=== PATIENT | male | born 1950 | race Caucasian/White ===

== ENCOUNTER → 2022-10-03 | Outpatient (CLI) | payer MEDICARE, SELFPAY ==
[2022-10-03 10:03] LABS: Anion Gap 7 (5-15); BUN 34 mg/dL (7-18); BUN/Creat Ratio 29.6 RATIO (10-20); Chloride 107 mmol/L (98-107); Creatinine, Serum 1.15 mg/dL (0.70-1.30); EST Glomerular Filtration Rate 66 mL/min (>60); Est Glom Filt Rate - Afr Amer 80 mL/min (>60); Glucose 123 mg/dL (74-106); Potassium 4.1 mmol/L (3.5-5.1); Sodium Level 143 mmol/L (136-145)
== END | disposition home or self-care (01) ==
PROVIDERS: PCP Family Medicine
DX: I50.9 Heart failure, unspecified (principal)
CPT/HCPCS: 36415; 80048

== ENCOUNTER → 2023-04-09 | Outpatient (CLI) | payer MEDICARE, SELFPAY ==
--- NOTE | 2023-04-09 06:57 | CT_ITS ---
INDICATION: carotid artery stenosis EXAMINATION: CTA HEAD - CTA Head and Neck W/ Contrast Injection (and W/O Contrast Images if performed) TECHNIQUE: [place]/head CT angiogram protocol was performed following IV contrast. Routine carotid CT angiogram protocol was performed without and with IV contrast. NASCET criteria using the distal ICAs for comparison were used for evaluation of stenoses. 3D reconstructions were reviewed of the CT angiogram head and neck. RADIATION DOSAGE (If Supplied By Facility): CTDIvol = ( ) mGy, DLP = ( 1650.32 ) mGycm IV Contrast dosage and agent: 100 mL of Isovue-370. COMPARISON: FINDINGS: --Anterior cerebral circulation: ACAs: No significant stenosis at the visualized segments. ACOM: Present. MCAs: No significant stenosis at the visualized segments. --Posterior cerebral circulation: PCOMs: Patent right posterior communicating artery. No visible left posterior communicating artery. 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 BASILAR ARTERY: No significant stenosis. VERTEBRAL ARTERIES: Calcified plaques in the intradural segment of the left vertebral artery causing less than percent stenosis. No significant stenosis of vertebral arteries in the intradural segments. --Carotid and vertebral circulation: AORTIC ARCH AND BRANCHES: Few calcified plaques in aortic arch. Widely patent aortic arch and origins of the great vessels. 50% stenosis of the direct aortic arch origin of the left vertebral artery. RIGHT CCA: No occlusion, significant stenosis or dissection. RIGHT ICA: Calcified plaques without significant stenosis in the right proximal internal carotid artery. LEFT CCA: Calcified plaques in the left distal common carotid artery and left common carotid artery bifurcation. No significant stenosis of the left common carotid artery. LEFT ICA: Calcified plaques along the left carotid bulb and left proximal internal carotid artery without significant stenosis. LEFT ECA: High-grade stenosis at its origin due to noncalcified plaques more than calcified plaques. RIGHT VERTEBRAL ARTERY: 70% stenosis at its subclavian origin. The remaining segments of the right vertebral artery are widely patent. LEFT VERTEBRAL ARTERY: 60% stenosis at its aortic arch origin and 50% stenosis in the intradural segment due to calcified plaques. The cervical segments are widely patent. NECK SOFT TISSUES: Few benign reactive nodes in the suprahyoid neck. No suspicious mass or lymphadenopathy in the suprahyoid neck and infrahyoid neck. Tiny hypodense nodule in the right thyroid lobe and in the caudal aspect of the left thyroid lobe. LUNG APICES: Clear. BONES: Pronounced C6-C7 degenerative disc space height narrowing. No lytic or blastic lesions. CT/CTA Head AND Neck W/ Contrast IMPRESSION: 1. Calcified plaques without significant stenosis in the cavernous segments of both internal carotid arteries. No CTA evidence of any significant vaso-occlusive disease of the anterior and posterior intracranial circulation and no CTA evidence of intracranial aneurysm. 2. 70% stenosis at the subclavian origin of the right vertebral artery and 60% stenosis at the direct aortic arch origin of the left vertebral artery. 50% stenosis in the intradural segment of the left vertebral artery due to calcified plaques. 3. Widely patent bilateral common carotid arteries and bilateral cervical internal carotid arteries. 4. High-grade stenosis of the left external carotid artery origin. 5. Widely patent aortic arch and origins of the great vessels except for the 60% stenosis of the direct aortic arch origin of the left vertebral artery. Electronically Signed: Vipul Lin MD at 8:40 EDT ,
[2023-04-09 07:24] LABS: CREATININE FINGERSTICK 1.1 mg/dL (0.70-1.30); EGFR FINGERSTICK > 60.0000 mL/min (>60)
== END | disposition home or self-care (01) ==
PROVIDERS: PCP Family Medicine; Referring Provider Physician Assistant; Visit Provider Physician Assistant
DX: I77.9 Disorder of arteries and arterioles, unspecified (principal)
CPT/HCPCS: 70496; 70498; Q9967

== ENCOUNTER → 2023-04-18 | Outpatient (CLI) | payer MEDICARE, SELFPAY ==
--- NOTE | 2023-04-18 13:30 | CDU_ITS ---
Reason For Study: CAROTID STENOSIS Rt. Velocities/BP Lt. Velocities/BP Prox CCA 65.8/3.4 cm/sec. Prox CCA 131.5/15.1 cm/sec. Mid CCA 75.2/11.9 cm/sec. Mid CCA 103.0/10.8 cm/sec. Dist CCA 83.7/12.8 cm/sec. Dist CCA 129.3/15.1 cm/sec. Prox ICA 203.6/11.4 cm/sec. Prox ICA 149.6/18.1 cm/sec. Mid ICA 164.4/15.3 cm/sec. Mid ICA 125.8/14.4 cm/sec. Dist ICA 137.1/0.0 cm/sec. Dist ICA 80.2/16.3 cm/sec. Rt. ICA/CCA = 2.70. Lt. ICA/CCA = 149.6/103.0=1.45. Prox ECA 312.3/14.1 cm/sec. Prox ECA 380.2/18.1 cm/sec. Rt. Vert. 68.0/9.8 cm/sec. Lt. Vert. 87.8/8.7 cm/sec. Right Extracranial There is homogeneous, smooth atherosclerotic plaque noted in the right common carotid artery. There is heterogeneous, irregular atherosclerotic plaque noted in the right internal carotid artery. There is heterogeneous, irregular atherosclerotic plaque noted in the right external carotid artery. There is heterogeneous, irregular atherosclerotic plaque noted in the right bulb. Left Extracranial There is heterogeneous, irregular atherosclerotic plaque noted in the left common carotid artery. There is heterogeneous, irregular atherosclerotic plaque noted in the left internal carotid artery. There is heterogeneous, irregular atherosclerotic plaque noted in the left external carotid artery. Antegrade flow is noted in the left vertebral artery. Procedure Carotid Duplex 36895. This is a Carotid Duplex examination using B-mode, color flow and specral Doppler. Exam performed in department. VL/Carotid Duplex Ultrasound Interpretation Summary Moderate (50-69%) stenosis right extracranial internal carotid. Moderate (50-69%) stenosis left extracranial internal carotid. Patent and antegrade vertebrals bilaterally. Ordering Physician: Quoc Durham Referring Physician: Cornell Arevalo Performed By: Jennifer Baca, KARTHIK, RVT
== END | disposition home or self-care (01) ==
LOC: CVS 13:30
PROVIDERS: PCP Family Medicine; Referring Provider Surgery Trauma Surgery; Visit Provider Surgery Trauma Surgery
DX: I65.23 Occlusion and stenosis of bilateral carotid arteries (principal)
CPT/HCPCS: 93880

== ENCOUNTER → 2024-03-25 | Outpatient (CLI) | payer MEDICARE, SELFPAY ==
--- NOTE | 2024-03-25 09:01 | CDU_ITS ---
Reason For Study: Carotid artery stenosis Rt. Velocities/BP Lt. Velocities/BP Prox CCA 96.1/9 cm/sec. Prox CCA 102.8/17 cm/sec. Mid CCA 82.6/12.6 cm/sec. Mid CCA 80.9/13.3 cm/sec. Dist CCA 82.6/15.1 cm/sec. Dist CCA 102.8/15.2 cm/sec. Prox ICA 197.8/26.7 cm/sec. Prox ICA 153.7/29.3 cm/sec. Mid ICA 110.9/22.5 cm/sec. Mid ICA 112/18.8 cm/sec. Dist ICA 81.4/18.8 cm/sec. Dist ICA 78.4/19 cm/sec. Rt. ICA/CCA = 2.39. Lt. ICA/CCA = 1.90. Prox ECA 224.4/14.2 cm/sec. Prox ECA 295.4/20.8 cm/sec. Rt. Vert. 44.7/9.7 cm/sec. Lt. Vert. 49.1/9.9 cm/sec. Right Extracranial There is homogeneous, smooth atherosclerotic plaque noted in the right common carotid artery. There is heterogeneous, irregular atherosclerotic plaque noted in the right internal carotid artery. The distal right internal carotid artery is not well visualized. There is heterogeneous, irregular atherosclerotic plaque noted in the right external carotid artery. Antegrade flow is noted in the right vertebral artery. Left Extracranial There is heterogeneous, irregular atherosclerotic plaque noted in the left common carotid artery. There is heterogeneous, irregular atherosclerotic plaque noted in the left internal carotid artery. There is heterogeneous, irregular atherosclerotic plaque noted in the left external carotid artery. Antegrade flow is noted in the left vertebral artery. Procedure Carotid Duplex [id number]. This is a Carotid Duplex examination using B-mode, color flow and specral Doppler. Exam performed in department. VL/Carotid Duplex Ultrasound Interpretation Summary Moderate (50-69%) stenosis right extracranial internal carotid. Moderate (50-69%) stenosis left extracranial internal carotid. Patent and antegrade vertebrals bilaterally. Ordering Physician: Lois Branham Referring Physician: Cornell Arevalo MD Performed By: Kitty Minor RVT
== END | disposition home or self-care (01) ==
LOC: CVS 08:58
PROVIDERS: PCP Family Medicine; Referring Provider Physician Assistant; Visit Provider Physician Assistant
DX: I65.21 Occlusion and stenosis of right carotid artery (principal)
CPT/HCPCS: 93880

== ENCOUNTER → 2025-03-28 | Outpatient (CLI) | payer MEDICARE, SELFPAY ==
--- NOTE | 2025-03-28 08:40 | CDU_ITS ---
Reason For Study Reason For Study: Carotid stenosis Rt. Velocities/BP Lt. Velocities/BP Prox CCA 90/10.2 cm/sec. Prox CCA 106/18.8 cm/sec. Mid CCA 121.1/17 cm/sec. Mid CCA 88.8/16.3 cm/sec. Dist CCA 90/18.8 cm/sec. Dist CCA 96.1/20 cm/sec. Prox ICA 200.4/21.5 cm/sec. Prox ICA 158.9/18.9 cm/sec. Mid ICA 76.5/16.3 cm/sec. Mid ICA 88.2/17 cm/sec. Dist ICA 80.3/14.1 cm/sec. Dist ICA 101/17 cm/sec. Rt. ICA/CCA = 1.65. Lt. ICA/CCA = 1.79. Prox ECA 269.3/26.8 cm/sec. Prox ECA 177 cm/sec. Rt. Vert. 52.2/11.6 cm/sec. Lt. Vert. 50.9/9.1 cm/sec. Right Extracranial There is homogeneous, smooth atherosclerotic plaque noted in the right common carotid artery. There is heterogeneous, irregular atherosclerotic plaque noted in the right internal carotid artery. There is heterogeneous, irregular atherosclerotic plaque noted in the right external carotid artery. Antegrade flow is noted in the right vertebral artery. Left Extracranial There is heterogeneous, irregular atherosclerotic plaque noted in the left common carotid artery. There is heterogeneous, irregular atherosclerotic plaque noted in the left internal carotid artery. There is heterogeneous, irregular atherosclerotic plaque noted in the left external carotid artery. Antegrade flow is noted in the left vertebral artery. Procedure Carotid Duplex [id number]. This is a Carotid Duplex examination using B-mode, color flow and specral Doppler. Exam performed in department. VL/Carotid Duplex Ultrasound Interpretation Summary Moderate (50-69%) stenosis right extracranial internal carotid. Moderate (50-69%) stenosis left extracranial internal carotid. Patent and antegrade vertebrals bilaterally. Ordering Physician: Lois Branham Referring Physician: Cornell Arevalo MD Performed By: Kitty Minor RVT
== END | disposition home or self-care (01) ==
LOC: CVS 08:34
PROVIDERS: PCP Family Medicine; Referring Provider Physician Assistant; Visit Provider Physician Assistant
DX: I65.23 Occlusion and stenosis of bilateral carotid arteries (principal)
CPT/HCPCS: 93880